=== PATIENT | male | born 1985 | race Caucasian/White ===

== ENCOUNTER 2024-10-06 12:31 | Outpatient (CLI) | payer OTHER ==
--- NOTE | 2024-10-06 14:27 | RADIOLOGY REPORT ---
CLINICAL INFORMATION: Rupture of right distal biceps tendon. COMPARISON: None TECHNIQUE: Multisequence multiplanar MRI images of the right elbow were obtained without contrast. FINDINGS: BONES/JOINT: No acute fracture or focal marrow contusion. Mild arthritic changes of the right elbow. No significant joint effusion. TENDONS: Common extensor tendon origin is intact and otherwise unremarkable. Origin of the common fle xor tendon is intact and otherwise unremarkable. Full-thickness complete rupture of the biceps tendon from its insertion at the radial tuberosity, with retraction of torn tendon fibers up to 5 cm with s urrounding fluid / hemorrhage extending from the level of the radial tuberosity and coursing back to the myotendinous junction. Prominent laxity of the torn retracted biceps tendon. Distal brachialis te ndon and distal triceps tendon are intact. LIGAMENTS: Ulnar collateral ligament is intact. Radial collateral ligament, lateral ulnar collateral ligament, and annular ligament are intact. CUBITAL TUNNEL: Unremarkable. Normal signal intensity and caliber of the ulnar nerve within the cubit al tunnel. MUSCLES: Prominent edema and fluid of the distal biceps myotendinous junction associated with the bic eps tendon rupture. Edema and fluid also extends along the ulnar aspect of the elbow. OTHER: Motion artifact limits evaluation. IMPRESSION: Full-thickness, complete rupture of the biceps tendon from its insertion as detailed above.
== END 2024-10-06 23:59 | disposition home or self-care (01) ==
LOC: MRI02 12:31
PROVIDERS: ATTEND Orthopaedic Surgery
DX: S46.211A Strain of muscle, fascia and tendon of other parts of biceps, right arm, initial encounter (principal); M25.521 Pain in right elbow; M19.021 Primary osteoarthritis, right elbow; X58.XXXA Exposure to other specified factors, initial encounter; Y93.89 Activity, other specified; Y92.89 Other specified places as the place of occurrence of the external cause; Y99.8 Other external cause status
CPT/HCPCS: 73221